=== PATIENT | male | born 1955 | race Caucasian/White ===

== ENCOUNTER 2020-01-04 21:18 | Inpatient (IN) | payer MEDICARE ==
[~2020-01-04] VITALS: Ht 152.4 cm; Wt 86.2 kg
[~2020-01-04 21:18] MED LIST: BENADRYL25 MG PO; KEYTRUDA100 MG/4 M IV; PEPCID20 MG PO; PREDNISONE 10 M10 MG PO
[2020-01-04 21:21] VITALS: BP 126/86
[2020-01-04] MEDS ORDERED: [UNRECOGNIZED DRUG - OTHER] (21:30)
[2020-01-04] MEDS ORDERED: BACLOFEN 10MG T10 MG PO (21:30)
[2020-01-04] MEDS ORDERED: OMEPRAZOLE 20 M20 M1 PO (21:30)
[2020-01-04] MEDS ORDERED: AMITRIPTYLINE H25 M3 PO (21:32)
[2020-01-04] MEDS ORDERED: LIPITOR80 MG PO (21:32)
[2020-01-04] MEDS ORDERED: DEXAMETHASONE 44 M1 PO (21:32)
[2020-01-04] MEDS ORDERED: DORYX MPC120 MG PO (21:33)
[2020-01-04] MEDS ORDERED: EMVERM100 MG PO (21:33)
[2020-01-04] MEDS ORDERED: ZUPLENZ8 MG PO (21:34)
[2020-01-04] MEDS ORDERED: MAGNESIUM250 M1 PO (21:34)
[2020-01-04] MEDS ORDERED: COMPAZINE10 MG PO (21:34)
[2020-01-04] MEDS ORDERED: METFORMIN HCL500 M3 PO (21:34)
[2020-01-04] MEDS ORDERED: FISH OIL 1,0001 EAC9 PO (21:34)
[2020-01-04 22:10] LABS: RBC 3.64 mil/uL (4.50-6.00)
[2020-01-04 22:12] LABS: HEMATOCRIT 34.7 % (42.0-52.0); HEMOGLOBIN 12.3 gm/dL (14.0-18.0); INR 1.1; MCH 33.8 pg (26.0-34.0); MCHC 35.4 g/dL (28.0-37.0); MCV 95.5 fL (80.0-100.0); MPV 8.2 fl. (7.2-11.1); NUCLEATED RBCS 1 /100WBC; PLATELET COUNT* 163 thou/uL (150-400); RDW-CV 12.6 % (10.5-14.5)
[2020-01-04 22:17] LABS: CALCIUM 7.8 mg/dL (8.5-10.1); CREATININE 0.8 mg/dL (0.6-1.3); POTASSIUM 3.3 mmol/L (3.5-5.1)
[2020-01-04 22:28] LABS: ALBUMIN 2.8 g/dL (3.4-5.0); MAGNESIUM 1.9 mg/dL (1.8-2.4); TOTAL BILIRUBIN 0.7 mg/dL (<0.1-1.0); TOTAL PROTEIN 6.7 g/dL (6.4-8.2)
[2020-01-04 22:51] LABS: ATYPICAL LYMPHS 2 %
[2020-01-04 22:52] LABS: PLATELET ESTIMATE ADEQUATE
[2020-01-04 22:53] LABS: ABSOLUTE LYMPHOCYTES 0.2 thou/uL (0.8-5.3); ABSOLUTE MONOCYTES 0.1 thou/uL (0.0-1.2); WBC 0.3 thou/uL (4.0-11.0)
[2020-01-05 00:57] VITALS: BP 106/61
[2020-01-05 01:53] VITALS: BP 98/55
[2020-01-05] MEDS ORDERED: MAGIC MOUTHWASH PO (03:13)
[2020-01-05 04:00] VITALS: BP 107/63
[2020-01-05 08:00] VITALS: BP 108/71
--- NOTE | 2020-01-05 08:40 | NUR ---
PATIENT ADMITTED TO ROOM 205 FROM THE ER AT APPROXIMATELY 0100. REPORT GIVEN FROM [facility] ER NURSE. VSS ON 1L 02 VIA NASAL CANNULA. NO C/O PAIN AT THIS TIME. PATIENT ORIENTED TO ROOM AND POLICIES. ASSESSMENT CHARTED. PATIENT PUT IN ISOLATION/NEUTROPENIC PRECAUTIONS. PATIENT IS UP AD-ZEINA AND STEADY ON FEET. PATIENT IS SINUS TACH ON TELE MONITOR. HEM/ONC CONSULTED. IV IN RIGHT AC-SL. NO C/O CHEST PAIN DURING THE NIGHT. PATIENT INSTRUCTED TO USE CALL LIGHT WHEN NEEDING ASSISTANCE. HOURLY ROUNDS MADE. WILL CONTINUE WITH PLAN OF CARE AND NURSING TO MONITOR.
--- NOTE | 2020-01-05 09:44 | EKG ---
[place] [address] ELECTROCARDIOGRAM REPORT Name: ENE MAZARIEGOS Room: [address] ADM IN M.R.#: [id number] Admission: 01/04/20 Attend Phys: Amrit Silva, Discharge: Date of : 55 Date of Service: 01/04/202123 Report #: [id number] THIS REPORT FOR: //name// [facility] ED Test Date: 2020-01-04 Test Time: 21:24:30 Pat Name: ENE MAZARIEGOS Department: Room: [facility] Gender: M Breaker Boss: CHARLES : 1955 Requested By: Ghada Taylor Order Number: [id number] MD: Awais Napier Measurements Intervals [place] Rate: 125 P: 41 RI: 168 QRS: -48 QRSD: 86 T: 59 QT: 323 QTc: 466 Interpretive Statements Sinus tachycardia Multiform ventricular and supraventricular premature complexes Left axis deviation nonspecific st changes Borderline low voltage, extremity leads Compared to ECG 11/20/2018 20:26:46 No significant changes Electronically Signed On 01-05-2020 9:44:23 CDT by Awais Napier [email or web address] <ELECTRONICALLY SIGNED> By: Awais Napier MD, FACC 01/05/2044 23 23 Awais Napier MD, FAC /EPI
[2020-01-05 12:00] VITALS: BP 131/67; BP 95/56
--- NOTE | 2020-01-05 12:34 | NUR ---
Pt is A&O. Resides at home with his . Independent. Pt has lung CA, receiving chemo tx, hem/onc consulted. No DME. No hx of HH or SNF. Goal is home at dc, no needs anticipated. Anticipate dc in a few days.
[2020-01-05 16:00] VITALS: BP 111/72
--- NOTE | 2020-01-05 19:13 | NUR ---
PT. VSS, AOX4, PAIN UNDER CONTROL, ON NEUTROPENIC PRECAUTIONS, ST BUT STABLE ON MONITOR. PT. TRANSFERED TO [facility] AT SHIFT CHANGE. REPORT GIVEN TO BREEZY SPENCER. PT. LEFT WITH HOME MEDS AND PERSONAL BELONGINGS. PT. IN STABLE CONDITION AT TIME OF D/C. PT. LEFT ON STRETCHER AND TRANSFERED BY AMBULANCE. WITH PT. UNTIL TRANSFER OUT OF UNIT.
--- NOTE | 2020-01-08 12:52 | CON ---
[facility] [address] [place] [address] CONSULTATION Name: ENE MAZARIEGOS Room: [address] IN M.R.#: [id number] Admission: 01/04/20 Attend Phys: Amrit Silva MD Discharge: 01/05/20 Date of : 55 Report #: [id number] THIS REPORT FOR: //name// cc: [facility] physician unknown [facility] physician unknown ~ THIS REPORT FOR: //name// CC: Amrit Silva [facility] unknown DATE OF SERVICE: 01/05/2020 REASON FOR CONSULTATION: Lung cancer. REQUESTING PHYSICIAN: Amrit Silva M.D. HISTORY OF PRESENT ILLNESS: The patient is a pleasant 64-year-old man well known to my partner, Dr. Montes De Oca. He is undergoing chemotherapy for newly diagnosed squamous cell carcinoma of the lung. He received first cycle of chemotherapy and Taxotere a week ago. He developed pain with swallowing and constipation, was seen at [facility]. He was given Magic mouthwash. He was given Thorazine for hiccups and was sent home. He did not have fever at that time. He presented to Emergency Room yesterday with fever. He was found to have neutropenia, so he was admitted to the hospital with febrile neutropenia. This morning, he is feeling okay, does not have hiccups this morning. He does not have shortness of breath or cough, constipation resolved. He is very weak, but otherwise feeling okay. He does not have dysuria. He denies mouth sores, but continues to have odynophagia and difficulty with swallowing. PAST MEDICAL HISTORY: Significant for squamous cell carcinoma of the lung, EGFR mutation positive, and COPD. SOCIAL HISTORY: Previous smoker. FAMILY HISTORY: Noncontributory. REVIEW OF SYSTEMS: See above. PHYSICAL EXAMINATION: GENERAL: Reveals a well-developed, well-nourished man, not in acute distress. VITAL SIGNS: Blood pressure 107/63, heart rate is 91, temperature 99.9, and respirations 18. HEENT: Does not reveal thrush. There are no mouth sores. HEART: Normal S1, S2. [place]: [place] [address] CONSULTATION Name: ENE MAZARIEGOS Room: [address]#: [id number] Admission: 01/04/20 Attend Phys: Amrit Silva MD Discharge: 01/05/20 Date of : 55 Report #: [id number] ABDOMEN: Soft. No organomegaly. SKIN: Does not reveal any new rash. There is no axillary lymphadenopathy or supraclavicular lymphadenopathy. MENTAL STATUS: Alert and oriented x 3. LABORATORY DATA: White count 0.3, hemoglobin 12.3, platelets are 163, absolute neutrophil count 0. Sodium 134, potassium 3.3, bilirubin 0.7. Chest x-ray shows bilateral perihilar infiltrates suggestive of atypical pneumonitis. ASSESSMENT AND PLAN: 1. Febrile neutropenia. Agree with antibiotics. I will review the patient's outpatient medical records if he has not ____ and we can give him Neupogen. I will order myself if necessary. 2. Mucositis. Magic mouthwash. The patient was prescribed Magic mouthwash, he hopefully can use ____ in the hospital. 3. Lung cancer, on chemotherapy. 4. Pneumonia, questionable. Continue antibiotics. Thank you very much for allowing me to participate in care of this patient. I will follow the patient with you. <ELECTRONICALLY SIGNED> By: Nicholas Ceja MD 01/08/20 1252 [id number] Ceja MD /nt
== END 2020-01-05 19:26 | disposition short-term general hospital (02) | DRG 871 ==
LOC: M.ERS 21:18 → M.TBA-ER 23:31 → M.2W 23:31
PROVIDERS: Emergency Medicine; ADMIT Internal Medicine; ATTEND Internal Medicine
DX: A41.9 Sepsis, unspecified organism (principal); J15.6 Pneumonia due to other Gram-negative bacteria; C34.90 Malignant neoplasm of unspecified part of unspecified bronchus or lung; J44.0 Chronic obstructive pulmonary disease with (acute) lower respiratory infection; K12.30 Oral mucositis (ulcerative), unspecified; R13.10 Dysphagia, unspecified; E86.0 Dehydration; I95.89 Other hypotension; G89.3 Neoplasm related pain (acute) (chronic); Z20.828 Contact with and (suspected) exposure to other viral communicable diseases; Z85.118 Personal history of other malignant neoplasm of bronchus and lung; Z88.6 Allergy status to analgesic agent; Z88.8 Allergy status to other drugs, medicaments and biological substances; Z87.891 Personal history of nicotine dependence; Z79.899 Other long term (current) drug therapy